=== PATIENT | male | born 1950 | race Caucasian/White ===

== ENCOUNTER → 2023-06-09 08:38 | Outpatient (REF) | payer OTHER, SELFPAY ==
[2023-06-09 09:13] LABS: % Basophils 0.6 % (0-2); % Eosinophils 4.3 % (0-6); % Immature Granulocytes 0.6 % (0-0.5); % Lymphocytes 8.9 % (20.5-51.1); % Monocytes 7.7 % (1.7-9.3); % Neutrophils 77.9 % (42.2-75.2); Absolute Eosinophils 0.3 10^3/uL (0-0.7); Absolute Lymphocytes 0.6 10^3/uL (1.2-3.4); Absolute Monocytes 0.5 10^3/uL (0.1-0.6); Absolute Neutrophils 5.2 10^3/uL (1.4-6.5); Hematocrit 35.5 % (39.0-52.0); Hemoglobin 11.8 g/dL (13.0-18.0); Mean Corp Hgb Conc. 33.2 g/dL (33.0-37.0); Mean Corpuscular Hgb 29.4 pg (27.0-31.0); Mean Corpuscular Volume 88.3 fL (80.0-94.0); Nucleated Red Blood Cells % 0 % (-); Platelet Count 207 10^3/uL (130-400); Red Blood Cell Count 4.02 10^6/uL (4.70-6.10); Red Cell Dist. Width 14.1 % (11.5-14.5); White Blood Cell Count 6.7 10^3/uL (4.8-10.8)
[2023-06-09 09:50] LABS: Blood Urea Nitrogen 33 mg/dl (9-20); Calcium 9.4 mg/dl (8.4-10.2); Carbon Dioxide 28 mmol/L (22-30); Chloride 102 mmol/L (98-107); Glucose 94 mg/dl (70-99); Potassium 4.7 mmol/L (3.5-5.1); Sodium 138 mmol/L (135-145); eGFR 32.83
== END ==
LOC: REG 08:38
PROVIDERS: ATTENDING PHYSICIAN Student in an Organized Health Care Education/Training Program
DX: Z09 Encounter for follow-up examination after completed treatment for conditions other than malignant neoplasm (principal); D64.9 Anemia, unspecified
CPT/HCPCS: 36415; 80048; 85025

== ENCOUNTER → 2023-10-04 12:42 | Outpatient (REF) | payer OTHER, SELFPAY | LOC: HWRCS 12:42 | PROVIDERS: ATTENDING PHYSICIAN Internal Medicine Cardiovascular Disease; FAMILY PHYSICIAN Student in an Organized Health Care Education/Training Program | DX: R01.1 Cardiac murmur, unspecified (principal) | CPT/HCPCS: 93306 ==

== ENCOUNTER → 2023-10-07 07:41 | Outpatient (REF) | payer OTHER, SELFPAY ==
[2023-10-07 09:32] LABS: ALT (SGPT) 19 U/L (0-50); AST (SGOT) 26 U/L (17-59); Albumin 3.9 g/dl (3.5-5.0); Alkaline Phosphatase 60 U/L (38-126); Direct Bilirubin 0.3 mg/dl (0.0-0.4); HDL Cholesterol 39 mg/dl; LDL Cholesterol, Calculated 85 mg/dl; Total Bilirubin 0.7 mg/dl (0.2-1.3); Total Cholesterol 149 mg/dl (50-199); Total Protein 6.3 g/dl (6.3-8.2); Triglyceride 128 mg/dl (10-149); Very Low Density Lipoprotein 25 mg/dl (0-30)
[2023-10-07 09:47] LABS: Glycohemoglobin (HgbA1c) 5.9 % (4.0-5.6)
[2023-10-07 09:50] LABS: PSA, Total - Screen 0.68 ng/ml (0.0-4.0); TSH Reflex To Free T4 0.92 uIU/ml (0.47-4.68)
[2023-10-07 12:20] LABS: Hepatitis B Surface Antigen Negative (Negative)
[2023-10-07 12:38] LABS: Hepatitis B Core Ab, Total Negative (Negative); Hepatitis B Surface Antibody Negative
== END ==
LOC: REG 07:41
PROVIDERS: ATTENDING PHYSICIAN Student in an Organized Health Care Education/Training Program
DX: Z86.73 Personal history of transient ischemic attack (TIA), and cerebral infarction without residual deficits (principal); Z00.00 Encounter for general adult medical examination without abnormal findings; Z12.5 Encounter for screening for malignant neoplasm of prostate; R73.03 Prediabetes
CPT/HCPCS: 36415; 80061; 80076; 83036; 84443; 86704; 86706; 87340; G0103

== ENCOUNTER → 2023-11-30 08:02 | Outpatient (REF) | payer OTHER, SELFPAY ==
[2023-11-30 09:23] LABS: Hemoglobin 12.4 g/dL (13.0-18.0)
[2023-11-30 09:53] LABS: Urine Albumin Negative (Neg - Trace); Urine Bilirubin Negative (Negative); Urine Character Clear (Clear); Urine Color Yellow; Urine Glucose Negative (Negative); Urine Ketone Negative (Negative); Urine Leukocyte Negative (Negative); Urine Nitrite Negative (Negative); Urine Occult Blood Negative (Negative); Urine Urobilinogen Negative (Neg - 1+)
[2023-11-30 10:17] LABS: Blood Urea Nitrogen 35 mg/dl (9-20); Calcium 9.3 mg/dl (8.4-10.2); Carbon Dioxide 26 mmol/L (22-30); Chloride 107 mmol/L (98-107); Glucose 99 mg/dl (70-99); Phosphorus 3.2 mg/dl (2.5-4.5); Potassium 4.7 mmol/L (3.5-5.1); Sodium 139 mmol/L (135-145); eGFR 32.62
[2023-11-30 10:28] LABS: Protein/creatinine Ratio 0.1; Urine Protein 9 mg/dl
[2023-12-03 09:43] LABS: Intact PTH 71.2 pg/ml (13.6-85.8)
== END ==
LOC: REG 08:02
PROVIDERS: ATTENDING PHYSICIAN Specialist
DX: E78.2 Mixed hyperlipidemia (principal); I10 Essential (primary) hypertension; N17.9 Acute kidney failure, unspecified
CPT/HCPCS: 36415; 80048; 81003; 82570; 83970; 84100; 84156; 85018

== ENCOUNTER 2024-05-15 12:00 | Emergency (ER) | payer OTHER, SELFPAY ==
[2024-05-15 12:15] VITALS: BP 130/86
--- NOTE | 2024-05-15 13:16 | ED.GENMED ---
History of Present Illness
General
Chief Complaint: DVT/Possible Blood Clot
Source: patient
Exam Limitations: none
Time Seen by Provider: 05/15/24 13:01
Nursing documentation reviewed up to this point in time: agreed with
History of Present Illness
History of Present Illness:
73-year-old male with history of TIA, DVT, HTN, HLD, diverticulitis, GERD, BPH, chronic renal failure, AAA repair presents after experiencing right calf pain during the night when he got out of bed to go to the bathroom. He denies chest pain or
trouble breathing.
Past History
Past History
ED Past Medical History: HTN, Hypercholesterolemia, Other (renal insufficiency) and Other (Abdominal aortic aneurysm, DVT)
ED Past Surgical History: Cardiac (AAA repair, vascular seal 1977)
Social History
Tobacco: Former smoker
Alcohol: Occasional
Drug: None
Personal:
Living: with family
Employment: Other (Artist)
Review of Systems
Review of Systems
Allergies reviewed?: Yes
All Other Systems: ROS reviewed and negative except as documented in HPI and ROS
Constitutional: Denies fever
Respiratory: Denies trouble breathing
Cardiac: Denies chest pain
ABD/GI: Denies abdominal pain
Musculoskeletal: Reports other (Right calf pain)
Skin: Reports no symptoms
Neurological: Reports no symptoms
Phy Exam
Physical Exam
Physical Exam:
GENERAL: No acute distress. A&Ox3.
CONSTITUTIONAL: Afebrile.
EYES: clear, conjunctivae normal
ENMT: moist mucus membranes
RESPIRATORY: Regular respirations, nonlabored, lungs clear.
CARDIOVASCULAR: Regular rate and rhythm, no murmurs, no rubs.
GI: Soft, nontender, normal BS
MUSCULOSKELETAL: Moves with ease. Well perfused. Right calf with no redness, there is mild swelling, tender medial mid calf to palpation, pain elicited with dorsiflexion.
SKIN: Warm, dry, pink
PSYCH: Normal mood and affect. Well kept, interactive and appropriate
NEUROLOGIC: Awake, alert and oriented. No focal neurological deficits
Course
Orders/Labs/Results
Orders:
Orders
05/15/24 12:18
Venous Doppler Lwr Ext Rt [US Perip Venous LOWER Ext RT] Urgent
Comment:
Reason For Exam: pain and swelling.
Vital Signs
Initial and Last Documented VS:
Initial Vital Signs
Temp Pulse Resp BP Pulse Ox
98.0 F 68 18 130/86 98
05/15/24 12:15 05/15/24 12:15 05/15/24 12:15 05/15/24 12:15 05/15/24 12:15
Last Documented Vital Signs
Temp Pulse Resp BP Pulse Ox
98.0 F 68 18 130/86 98
05/15/24 12:15 05/15/24 12:15 05/15/24 12:15 05/15/24 12:15 05/15/24 12:15
MDM/Problems Addressed
MDM/Problems Addressed:
73-year-old male with history of TIA, DVT, HTN, HLD, diverticulitis, GERD, BPH, chronic renal failure, AAA repair presents after experiencing right calf pain during the night when he got out of bed to go to the bathroom. He denies chest pain or
trouble breathing.
Ultrasound of right lower extremity reveals no DVT.
Patient reassured
Mild swelling right calf, tender proximal medial calf, most likely a muscle tear/strain
Pt OOB and ambulating well declines when davion wrap offered.
*Critical Care Note
Total Time (30-74mins, 75-104mins- exclusive of procedures): Not Applicable
ED Attending Note
-
Portions of this chart may have been created with voice recognition software.� Occasional wrong word or��sound alike� substitutions may have occurred due to the inherent limitations of voice recognition software.
Discharge Plan
Departure
Patient Disposition: Home (Routine Discharge)
Date of Disposition: 05/15/24
Time of Disposition: 13:28
Patient with high blood pressure during this ER visit?: No
Condition: Good
Discharge Problem:
Strain of right calf muscle
Instructions: Muscle Strain ED
Prescriptions:
No Action
multivitamin Tablet
1 tab PO DAILY
pravastatin 80 mg Tablet
80 mg PO HS
labetalol 300 mg Tablet
300 mg PO BID
calcitriol 0.25 mcg Capsule
0.25 mcg PO MOWEFR@0800
cholecalciferol (vitamin D3) [Vitamin D3] 25 mcg (1,000 unit) Tablet
25 mcg PO DAILY
Xarelto 15 mg Tablet
15 mg PO HS
melatonin 10 mg Tablet
10 mg PO HS
diphenhydramine HCl [Benadryl] 25 mg Capsule
25 mg PO BID
betamethasone, augmented 0.05 % Cream
1 applic TOPICAL BID PRN (Reason: psoriasis flare)
acetaminophen [Tylenol Extra Strength] 500 mg Tablet
500 mg PO BIDPRN PRN (Reason: mild pain)
tacrolimus 0.1 % Ointment
1 applic TOPICAL BID PRN (Reason: skin issues)
Metamucil
1 dose PO DAILY
vitamin E
1 cap PO DAILY
Referrals:
UNKNOWN - PT DOES,NOT KNOW [Family Provider] -
Activity Restrictions/Additional Instructions:
As we discussed, your ultrasound shows no clot.
You most likely strained or slightly tore the muscle of your calf, you may note bruising down the ankle and into the foot over the next week, this is not unusual
Cold compress 20 minutes off and on is much as you can today and tomorrow to reduce swelling.
Interventions
Interventions:
*Risk Screen - Suicide Last Done: 05/15/24 12:15
*General Assessment Last Done: 05/15/24 12:15
*Neglect/Abuse Screening Last Done: 05/15/24 12:15
*Nursing Disposition Last Done: 05/15/24 13:39
ED- Cardiac Assessment Last Done: 05/15/24 13:22
ED- Pulmonary Assessment Last Done: 05/15/24 13:22
ED-Peripheral Vascular Assessment Last Done: 05/15/24 13:22
ED-Skin Assessment Last Done: 05/15/24 13:22
Discharge Date and Time
Discharge Date/Time: 05/15/24 13:39
Print Language: YI
== END 2024-05-15 13:39 | disposition home or self-care (01) ==
LOC: EMR 12:00
PROVIDERS: EMERGENCY PHYSICIAN Emergency Medicine
DX: S86.111A Strain of other muscle(s) and tendon(s) of posterior muscle group at lower leg level, right leg, initial encounter (principal); X58.XXXA Exposure to other specified factors, initial encounter; M79.661 Pain in right lower leg; I12.9 Hypertensive chronic kidney disease with stage 1 through stage 4 chronic kidney disease, or unspecified chronic kidney disease; N18.9 Chronic kidney disease, unspecified; E78.00 Pure hypercholesterolemia, unspecified; K21.9 Gastro-esophageal reflux disease without esophagitis; N40.0 Benign prostatic hyperplasia without lower urinary tract symptoms; Z86.718 Personal history of other venous thrombosis and embolism; Z86.73 Personal history of transient ischemic attack (TIA), and cerebral infarction without residual deficits; Z86.79 Personal history of other diseases of the circulatory system; Z87.891 Personal history of nicotine dependence
CPT/HCPCS: 99284; 93971

== ENCOUNTER → 2024-06-20 10:23 | Outpatient (REF) | payer OTHER, SELFPAY ==
[2024-06-20 13:12] LABS: Blood Urea Nitrogen 27 mg/dl (9-20); Calcium 9.3 mg/dl (8.4-10.2); Carbon Dioxide 26 mmol/L (22-30); Chloride 104 mmol/L (98-107); Glucose 103 mg/dl (70-99); Sodium 139 mmol/L (135-145); eGFR 36.79
== END ==
LOC: RAD 10:23
PROVIDERS: ATTENDING PHYSICIAN Surgery Vascular Surgery
DX: I71.40 Abdominal aortic aneurysm, without rupture, unspecified (principal)
CPT/HCPCS: 36415; 76770; 80048

== ENCOUNTER → 2024-06-22 09:10 | Outpatient (REF) | payer OTHER, SELFPAY | LOC: HWRAD 09:10 | PROVIDERS: ATTENDING PHYSICIAN Surgery Vascular Surgery | DX: I71.40 Abdominal aortic aneurysm, without rupture, unspecified (principal) | CPT/HCPCS: 74176 ==

== ENCOUNTER → 2025-01-30 07:46 | Outpatient (REF) | payer OTHER, SELFPAY ==
[2025-01-30 08:58] LABS: Urine Character Clear (Clear)
[2025-01-30 09:09] LABS: Hematocrit 39.2 % (39.0-52.0); Hemoglobin 12.8 g/dL (13.0-18.0); Mean Corp Hgb Conc. 32.7 g/dL (33.0-37.0); Mean Corpuscular Volume 87.1 fL (80.0-94.0); Nucleated Red Blood Cells % 0 % (-); Platelet Count 181 10^3/uL (130-400); Red Cell Dist. Width 15.3 % (11.5-14.5)
[2025-01-30 09:21] LABS: Glycohemoglobin (HgbA1c) 5.9 % (4.0-5.6)
[2025-01-30 09:32] LABS: Urine Squamous Cell 0-2 /LPF (Few)
[2025-01-30 09:33] LABS: Urine Red Blood Cell None Seen /HPF (0-2)
[2025-01-30 09:37] LABS: ALT (SGPT) 18 U/L (0-50); AST (SGOT) 22 U/L (17-59); Albumin 4.0 g/dl (3.5-5.0); Alkaline Phosphatase 51 U/L (38-126); Blood Urea Nitrogen 36 mg/dl (9-20); Calcium 9.4 mg/dl (8.4-10.2); Carbon Dioxide 27 mmol/L (22-30); Chloride 107 mmol/L (98-107); Glucose 102 mg/dl (70-99); HDL Cholesterol 42 mg/dl; LDL Cholesterol, Calculated 89 mg/dl; Potassium 4.7 mmol/L (3.5-5.1); Sodium 139 mmol/L (135-145); Total Protein 6.4 g/dl (6.3-8.2); Very Low Density Lipoprotein 20 mg/dl (0-30); eGFR 32.42
[2025-01-30 09:56] LABS: PSA, Total - Screen 0.60 ng/ml (0.0-4.0)
== END ==
LOC: REG 07:46
PROVIDERS: ATTENDING PHYSICIAN Nurse Practitioner Family; OTHER PHYSICIAN Nurse Practitioner Family
DX: Z13.0 Encounter for screening for diseases of the blood and blood-forming organs and certain disorders involving the immune mechanism (principal); R73.03 Prediabetes; E78.2 Mixed hyperlipidemia; R68.83 Chills (without fever)
CPT/HCPCS: 36415; 80053; 80061; 81003; 81015; 83036; 84443; 85025; 87086; G0103

== ENCOUNTER → 2025-02-26 15:12 | Outpatient (REF) | payer OTHER, SELFPAY ==
[2025-02-26 16:41] LABS: Calcium 9.3 mg/dl (8.4-10.2)
== END ==
LOC: REG 15:12
PROVIDERS: ATTENDING PHYSICIAN Specialist; FAMILY PHYSICIAN Nurse Practitioner Family
DX: N18.32 Chronic kidney disease, stage 3b (principal); N25.81 Secondary hyperparathyroidism of renal origin
CPT/HCPCS: 36415; 83970